=== PATIENT | female | born 1985 | race Caucasian/White ===

== ENCOUNTER 2024-08-08 11:09 | Outpatient (CLI) | payer OTHER | END 2024-08-08 11:10 | disposition home or self-care (01) | LOC: CSHMAMMO 11:09 | PROVIDERS: ATTEND Nurse Practitioner Family | DX: Z12.31 Encounter for screening mammogram for malignant neoplasm of breast (principal); Z98.890 Other specified postprocedural states | CPT/HCPCS: 77063; 77067 ==